=== PATIENT | male | born 1955 | race Hispanic/Latino ===

== ENCOUNTER 2022-04-16 12:48 | Observation (INO) | payer OTHER ==
[~2022-04-16] VITALS: Ht 177.8 cm; Wt 97.3 kg
[2022-04-16 13:25] LABS: BASOPHILS % (AUTO) 0.7 % (0.0-5.0); EOSINOPHILS % (AUTO) 4.3 % (0.0-8.0); HEMATOCRIT 42.3 % (42-54); LYMPHOCYTES % (AUTO) 30.9 % (21.0-51.0); MEAN CORPUSCULAR VOLUME 91.4 fL (79-99); MONOCYTES % (AUTO) 8.8 % (3.0-13.0); NEUTROPHILS % (AUTO) 54.9 % (40.0-77.0); PLATELET COUNT (AUTO) 140 K/uL (130-400); RED BLOOD CELL COUNT(AUTO) 4.63 MIL/uL (4.50-6.20); RED CELL DISTRIBUTION WIDTH 13.4 % (11.0-15.5); WHITE BLOOD COUNT (AUTO) 7.3 K/uL (4.8-10.8)
[2022-04-16 13:32] LABS: HEMOGLOBIN A1C 6.6 % (4.0-6.0)
[2022-04-16 13:37] LABS: CREATININE 1.2 mg/dL (0.5-1.5); POTASSIUM 3.8 mmol/L (3.5-5.1)
[2022-04-16 13:38] LABS: INR 0.94 (0.85-1.15); PROTHROMBIN TIME 10.3 SEC (9.6-11.6)
[2022-04-16 13:53] LABS: B-TYPE NATRIURETIC PEPTIDE 40 pg/mL (0-100)
[2022-04-16 14:01] LABS: ALBUMIN 4.1 g/dL (3.5-5.0); THYROID STIMULATING HORMONE 2.77 uIU/mL (0.36-3.74); TOTAL PROTEIN, SERUM 7.4 g/dL (6.0-8.3)
[2022-04-16] MEDS ORDERED: IOHEXOL-350 50ML VIAL IV ONE (14:48)
[2022-04-16] MEDS ORDERED: IOHEXOL 350 MG/ML 100ML INFUS..BTL IV ONE (14:48)
[2022-04-16] MEDS: METOPROLOL TARTRATE 25 MG TAB PO SCH (22:03)
[2022-04-17 00:06] VITALS: BP 163/106
[2022-04-17 04:06] LABS: BASOPHILS % (AUTO) 0.7 % (0.0-5.0); EOSINOPHILS % (AUTO) 4.1 % (0.0-8.0); HEMATOCRIT 40.3 % (42-54); LYMPHOCYTES % (AUTO) 31.6 % (21.0-51.0); MEAN CORPUSCULAR HEMOGLOBIN 32.2 pg (27.0-33.0); MEAN CORPUSCULAR HGB CONC 34.2 g/dL (32.0-36.0); MEAN CORPUSCULAR VOLUME 94.2 fL (79-99); MONOCYTES % (AUTO) 9.8 % (3.0-13.0); NEUTROPHILS % (AUTO) 53.4 % (40.0-77.0); PLATELET COUNT (AUTO) 126 K/uL (130-400); RED BLOOD CELL COUNT(AUTO) 4.28 MIL/uL (4.50-6.20); RED CELL DISTRIBUTION WIDTH 13.3 % (11.0-15.5); WHITE BLOOD COUNT (AUTO) 7.1 K/uL (4.8-10.8)
[2022-04-17 04:22] LABS: CREATININE 1.4 mg/dL (0.5-1.5); MAGNESIUM 1.8 mg/dL (1.80-2.40); POTASSIUM 4.4 mmol/L (3.5-5.1)
[2022-04-17 05:10] VITALS: BP 139/84
[2022-04-17 08:00] VITALS: BP 135/85
[2022-04-17] MEDS: METOPROLOL TARTRATE 25 MG TAB PO SCH (08:42)
[2022-04-17] MEDS ORDERED: LOSARTAN 100 MG TABLET PO SCH (09:00)
[2022-04-17] MEDS ORDERED: METOPROLOL SUCCINATE 25 MG TAB.SR.24H PO SCH (09:00)
[2022-04-17] MEDS ORDERED: ASPIRIN 81MG CHEW TAB PO SCH (09:00)
[2022-04-17] MEDS ORDERED: TAMSULOSIN HCL 0.4 MG CAP.ER.24H PO SCH (09:00)
[2022-04-17] MEDS ORDERED: PANTOPRAZOLE 40 MG TAB DR PO SCH (09:00)
[2022-04-17] MEDS ORDERED: LOSA100T58 PO (10:19)
[2022-04-17] MEDS ORDERED: ASPI-449 PO (10:19)
[2022-04-17] MEDS ORDERED: METO-408 PO (10:19)
[2022-04-17] MEDS ORDERED: ATOR40TA71 PO (10:19)
[2022-04-17] MEDS ORDERED: TAMS-1 PO (10:19)
[2022-04-17] MEDS ORDERED: ICOS1CAP PO (10:21)
[2022-04-17] MEDS ORDERED: FENOFIBRATE NANOCRYSTALLIZED 145 MG TAB PO SCH (10:30)
[2022-04-17 12:16] VITALS: BP 134/92
[2022-04-17 16:01] VITALS: BP 132/87
[2022-04-17] MEDS ORDERED: ATORVASTATIN 40 MG TABLET PO SCH (21:00)
[2022-04-18] MEDS ORDERED: FENOFIBRATE NANOCRYSTALLIZED 145 MG TAB PO SCH (09:00)
== END 2022-04-17 17:15 | disposition home or self-care (01) ==
LOC: EDH 12:48 → DIRECT 12:50 → INTOOBSV 12:50 → 2AH 22:50
PROVIDERS: ADMIT Hospitalist; ATTEND Hospitalist
DX: I71.40 Abdominal aortic aneurysm, without rupture, unspecified (principal); I10 Essential (primary) hypertension; E78.5 Hyperlipidemia, unspecified; E03.9 Hypothyroidism, unspecified; E66.9 Obesity, unspecified; E11.9 Type 2 diabetes mellitus without complications; E78.1 Pure hyperglyceridemia; F17.200 Nicotine dependence, unspecified, uncomplicated; Z79.899 Other long term (current) drug therapy
CPT/HCPCS: 75635; 71045; 80061; 83036; 84443; 84484; 80053; 83880; 85025 ×2; 85610; 36415 ×2; 93005; 93306; 83735; 80048; 93356; Q9967 ×2; G0378

== ENCOUNTER → 2022-05-10 | Outpatient (CLI) | payer OTHER ==
[~2022-05-10] MED LIST: ASPI-449 PO; ATOR40TA71 PO; ICOS1CAP PO; IOHEXOL 350 MG/ML 100ML INFUS..BTL IV ONE; LOSA100T58 PO; METF-446 PO; METO-408 PO; METOPROLOL TARTRATE 1 MG/ML 5ML VIAL IV ONE; TAMS-1 PO
== END | disposition home or self-care (01) ==
LOC: RAH 07:56
PROVIDERS: ATTEND Student in an Organized Health Care Education/Training Program
DX: R07.9 Chest pain, unspecified (principal)
CPT/HCPCS: 75574; J3490; Q9967

== ENCOUNTER → 2023-04-14 | Outpatient (CLI) | payer OTHER ==
[~2023-04-14] MED LIST changes: -LOSA100T58 PO; +LOSA100T59 PO
== END | disposition home or self-care (01) ==
LOC: RAH 09:01
PROVIDERS: ATTEND Student in an Organized Health Care Education/Training Program
DX: R07.9 Chest pain, unspecified (principal); M47.815 Spondylosis without myelopathy or radiculopathy, thoracolumbar region
CPT/HCPCS: 75574; J3490; Q9967